=== PATIENT | female | born 1955 | race Caucasian/White ===

== ENCOUNTER → 2022-01-07 | Outpatient (REF) | payer OTHER ==
[2022-01-07 15:53] LABS: MALB URINE SIEMENS 21.4 MG/L
== END ==
LOC: M LAB REF 14:58
PROVIDERS: ATTEND Nurse Practitioner Family
DX: E11.65 Type 2 diabetes mellitus with hyperglycemia (principal)

== ENCOUNTER → 2022-03-24 | Outpatient (REF) | payer OTHER, MEDICAID | LOC: M SFHCDERM 14:34 | PROVIDERS: ATTEND Physician Assistant | DX: R21 Rash and other nonspecific skin eruption (principal) ==